=== PATIENT | female | born 1970 | race Caucasian/White ===

== ENCOUNTER 2020-03-10 15:02 | Outpatient (CLI) | payer OTHER, SELFPAY ==
--- NOTE | 2020-03-10 15:08 | MM_ITS ---
WS: [id number] BILATERAL DIGITAL SCREENING MAMMOGRAPHY WITH CAD CLINICAL INFORMATION: SCREENING HISTORY: Screening mammogram. No current complaints. COMPARISON: TECHNIQUE: Bilateral CC and MLO views. FINDINGS: The breasts are composed of heterogeneous fibroglandular density tissue, which can limit the detectio n of small underlying mass lesions. No suspicious mass, asymmetry, calcifications, or architectural d istortion. No evidence of malignancy. A few punctate calcifications right breast. MM/[id number] IMPRESSION: BI-RADS: 2-Benign FOLLOW UP: 1 Year Follow-up Recommend return to annual screening mammography.
== END 2020-03-10 15:03 | disposition home or self-care (01) ==
LOC: RADSHAW 15:07
PROVIDERS: PCP Internal Medicine; Visit Provider Nurse Practitioner Family
DX: Z12.31 Encounter for screening mammogram for malignant neoplasm of breast (principal)
CPT/HCPCS: 77067

== ENCOUNTER → 2020-06-19 11:00 | Outpatient (BNVA) | payer BC, SELFPAY | PROVIDERS: PCP Internal Medicine; Visit Provider Nurse Practitioner Family | DX: Z20.828 Contact with and (suspected) exposure to other viral communicable diseases (principal) | CPT/HCPCS: 87426 ==

== ENCOUNTER → 2020-11-18 11:01 | Outpatient (BNVA) | payer BC, SELFPAY | PROVIDERS: PCP Internal Medicine; Visit Provider Nurse Practitioner Women's Health | DX: Z01.419 Encounter for gynecological examination (general) (routine) without abnormal findings (principal); N92.1 Excessive and frequent menstruation with irregular cycle | CPT/HCPCS: 88175 ==

== ENCOUNTER 2021-03-11 08:08 | Outpatient (CLI) | payer OTHER, SELFPAY ==
--- NOTE | 2021-03-11 08:14 | MM_ITS ---
WS: [id number] SCREENING DIGITAL MAMMOGRAM WITH CAD HISTORY: SCREENING COMPARISON: 03/10/2020, 01/23/2015 and 02/16/2019 Bilateral CC and MLO views submitted. Computer aided detection analyzed. Breast composition: The breasts are heterogeneously dense, which may obscure small masses. Focal roun ded asymmetry in the posterior lateral RIGHT breast is probably above or at the nipple line on the la teral projection. This was not definitely present on the most recent examinations. MM/[id number] IMPRESSION: BI-RADS: 0-Incomplete: Need additional imaging evaluation FOLLOW UP: Need Additional Imaging RIGHT breast: Spot compression views (CC and MLO). True ML. Ultrasound to follo w if abnormality persists.
== END 2021-03-11 08:09 | disposition home or self-care (01) ==
LOC: RADSHAW 08:13
PROVIDERS: PCP Internal Medicine; Visit Provider Nurse Practitioner Family
DX: Z12.31 Encounter for screening mammogram for malignant neoplasm of breast (principal)
CPT/HCPCS: 77067

== ENCOUNTER 2021-03-27 14:01 | Outpatient (CLI) | payer BC, MEDICAID, SELFPAY ==
--- NOTE | 2021-03-27 14:14 | MM_ITS ---
WS: [id number] ADDITIONAL VIEWS RIGHT BREAST HISTORY: RIGHT BREAST ASYMMETRY COMPARISON: 03/11/2021, 03/10/2020 02/16/2019 Compression views right CC and MLO projection. True ML also submitted. The asymmetry and nodule in the lateral RIGHT breast does not persist with additional imaging. This i s probably superimposed fibroglandular tissue. No ultrasound necessary. MM/[place] [id number] IMPRESSION: BI-RADS: 2-Benign FOLLOW-UP: 1 Year Follow-up
== END 2021-03-27 14:02 | disposition home or self-care (01) ==
LOC: RADSHAW 14:07
PROVIDERS: PCP Internal Medicine; Visit Provider Family Medicine
DX: N64.89 Other specified disorders of breast (principal)
CPT/HCPCS: 77065

== ENCOUNTER 2021-05-24 23:41 | Emergency (ER) | payer BC, MEDICAID, SELFPAY ==
[2021-05-24 23:42] VITALS: BP 142/95; PULSE 108; RESP 18; TEMP 36.8; O2SAT 97; BMI 28.3
--- NOTE | 2021-05-24 23:52 | ED_ITS ---
HPI - GI Bleed General: Chief complaint: General Medical Stated complaint: HEMMORRHOIDS/ETOH Time Seen by Provider: 05/24/21 23:42 History of Present Illness: HPI Narrative: Patient is a 51-year-old female that comes to the ED via EMS for hemorrhoids. Today patient says she is having some bleeding from her rectum due to her hemorrhoids. She denies any rectal pain currently. she has been dealing with these hemorrhoids for years and sees Dr. Parra for them. Associated symptoms: Denies abdominal pain, chills, fever(s), headache(s), nausea, rash or vomiting Review of Systems Const: Denies: fever(s), chills or fatigue Eyes: Denies: change in vision or eye discomfort ENMT: Denies: throat pain, odynophagia, nasal discharge or nasal congestion Card: Denies: chest pain, palpitations, edema, swelling of feet/ankles, dyspnea on exertion or orthopnea Resp: Denies: dyspnea, productive cough or non-productive cough GI: Reports: hematochezia (red blood); Denies: abdominal pain, nausea, vomiting, diarrhea or constipation : Denies: flank pain, dysuria or hematuria Musc: Denies: neck pain, back pain or extremity swelling Skin/Breast: Denies: rash or new lesions Neuro: Denies: headache(s), numbness in extremities or weakness in extremities PFSH ED PFSH: Medical History Anemia No pertinent past medical history (Unknown) neghx: htn,dm,thyroid,dvt/pe PCP: Dr. Parra Seizure disorder has not had a seizure since 1994; both seizures occurred after each /delivery; not on medication Surgical History Hx of tubal ligation (~2003) Family History Father Colon cancer dx age 75 Mother No problems noted. Family/Other Breast cancer Maternal Aunt--dx age 60's Sister Cervical cancer sister x2--dx age 30's Denies family history of Ovarian cancer Diabetes Heart disease Hypercholesteremia Hypertension Uterine cancer Thyroid disease Stroke Social History Marital status: Physical Exam Const: COMMON NORMALS: no acute distress and alert GENERAL APPEARANCE: odor of alcohol detected HENMT: COMMON NORMALS: normocephalic HEAD & SCALP: normocephalic MOUTH: Normal oral and palatal mucosa present THROAT: posterior oropharynx normal and uvula midline Neck/C-Spine: COMMON NORMALS: supple GENERAL: Yes normal visual inspection Resp: COMMON NORMALS: normal respiratory effort, No retractions, No use of accessory muscles and clear to auscultation bilaterally AUSCULTATION: clear to auscultation bilaterally Cardio: COMMON NORMALS: regular rate, regular rhythm, S1 normal heart sound present, S2 normal heart sound present, No gallops present (Cardio), No clicks present (Cardio), No murmurs present (Cardio) and Peripheral pulses 2+ throughout RATE: regular rate RHYTHM: regular rhythm HEART SOUNDS: S1 normal heart sound present and S2 normal heart sound present PERIPHERAL PULSES: Peripheral pulses 2+ throughout GI: COMMON NORMALS: Normal to inspection, nondistended, normoactive bowel sounds present, Soft to palpation, non-tender and no masses PALPATION: Yes Soft to palpation RECTAL EXAM: External hemorrhoid(s) present (Multiple hemorrhoids-no thrombosed hemorrhoids seen.) and other (No active bleeding, dried blood at rectum noted.) OTHER: Rectal exam performed with nurse Gotti in the room as cut out operator. : COMMON NORMALS: Yes no CVA tenderness BLADDER/KIDNEY EXAM: Yes no CVA tenderness Back/Pelvis: COMMON NORMALS: no CVA tenderness Extremity: COMMON NORMALS: normal to inspection Neuro: COMMON NORMALS: moves all extremities SENSORIUM/ORIENTATION: Yes alert Skin: GENERAL SKIN EXAM: dry skin Course Vital Signs: Vital signs: Vital Signs Temperature 98.3 F 05/24/21 23:42 Pulse Rate 108 H 05/24/21 23:42 Respiratory Rate 18 05/24/21 23:42 Blood Pressure 142/95 05/24/21 23:42 Pulse Oximetry 97 05/24/21 23:42 MDM - GI Bleed MDM Narrative: Medical decision making narrative: Patient is a 51-year-old female comes to the ED with bleeding hemorrhoids. Patient says she has a history of hemorrhoids for the several years now. Tonight just prior to arrival she started having some red blood bleeding from rectum. Denies any pain. Vitals stable. Exam of the rectum showed multiple external hemorrhoids with some dried blood present no active bleeding seen. Patient has at home suppository treatment she uses for her hemorrhoids. She also sees Dr. Parra who helps manage her hemorrhoids. Patient diagnosed with bleeding of external hemorrhoids. She was told to contact Dr. Parra's office tomorrow morning to set up an appointment with them for further evaluation. Return to ED precautions given. Patient understood agree with plan. Discharge Plan Discharge Patient Disposition: Home Clinical Impression: External hemorrhoid, bleeding Condition: Stable Prescriptions: No Action ferrous sulfate 325 mg (65 mg iron) tablet 325 mg PO DAILY RF: 0 ascorbate calcium (vitamin C) 500 mg tablet 500 mg PO DAILY RF: 0 pantoprazole 40 mg tablet,delayed release (DR/EC) 40 mg PO DAILY Qty: 90 RF: 3 Discharge Orders: Discharge ED (Routine); Ordered 05/25/21 Ordered By: Norm Bro Referrals: Robert Parra MD [Primary Care Provider] - Discharge Diet: Regular Discharge Activity: Resume usual activity Patient Instructions: Hemorrhoids (DC), Sitz Bath (DC) Activity Restrictions/Additional Instructions: Follow-up with medical provider as directed. Contact Dr. Parra tomorrow morning to set up an appoint for further evaluation. Use some of your at-home suppositories to help with hemorrhoid symptoms. Return to the ER or your medical provider if condition worsens. Please read and understand discharge instructions. Thank you for choosing [facility] for your healthcare needs today. Please realize this is an emergency room and that we are providing you with a medical screening exam and this may not be complete and all inclusive of all the testing and or work up that you may need to determine your ailment or severity of your illness. It is very important that you follow up as instructed or that you return to the Emergency Department should you have concerns or if your condition changes or worsens in any way. Coding Level of Care Code ED Derrick Boat Leverman for Renetta Mckay Exam Comprehensive
== END 2021-05-25 00:42 | disposition home or self-care (01) ==
PROVIDERS: Emergency Provider Physician Assistant; PCP Internal Medicine
DX: K64.4 Residual hemorrhoidal skin tags (principal)
CPT/HCPCS: 99282

== ENCOUNTER 2021-05-26 12:04 | Emergency (ER) | payer BC, MEDICAID, SELFPAY ==
[2021-05-26 12:40] VITALS: BP 146/89; PULSE 106; RESP 16; TEMP 37.1; O2SAT 98
--- NOTE | 2021-05-26 13:36 | CT_ITS ---
WS: [id number] CT HEAD NONCONTRAST HISTORY: head injury TECHNIQUE: Contiguous axial imaging performed through the brain in 2.5 mm imaging. Bone and soft tiss ue windows. Sagittal and coronal reformats reviewed. All CT scans at [facility] use at least one of these dose optimization techniques: automated exposure control; mA and/or kV adjustment per pa tient size (includes targeted exams where dose is matched to clinical indication); or iterative recon struction. DLP: 860.93 mGy.cm COMPARISON: None available. No acute intracranial hemorrhage, midline shift or mass effect. No atrophy or prior infarcts or herniation. Ventricles: Normal size with no hydrocephalus. Paranasal sinuses: As visualized are clear. Mastoid air cells: Well pneumatized. Calvarium and scalp: Skull is intact with no soft tissue edema or swelling. CT/CT head wo con* [id number] IMPRESSION: Negative head CT.
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
[2021-05-26 16:27] VITALS: PULSE 94; RESP 16; O2SAT 97
== END 2021-05-26 16:30 | disposition home or self-care (01) ==
PROVIDERS: Emergency Provider Nurse Practitioner Family; PCP Internal Medicine
DX: S09.8XXA Other specified injuries of head, initial encounter (principal); G47.00 Insomnia, unspecified; Y04.8XXA Assault by other bodily force, initial encounter
CPT/HCPCS: 70450; 99282

== ENCOUNTER → 2021-07-08 15:17 | Outpatient (BNVA) | payer BC, MEDICAID, SELFPAY | PROVIDERS: PCP Internal Medicine; Visit Provider Nurse Practitioner Women's Health | DX: D64.9 Anemia, unspecified (principal); N93.9 Abnormal uterine and vaginal bleeding, unspecified | CPT/HCPCS: 84443; 85025 ==

== ENCOUNTER → 2021-07-14 14:47 | Outpatient (BNVA) | payer BC, MEDICAID, SELFPAY | PROVIDERS: PCP Internal Medicine; Visit Provider Nurse Practitioner Women's Health | DX: N93.9 Abnormal uterine and vaginal bleeding, unspecified (principal); R93.89 Abnormal findings on diagnostic imaging of other specified body structures | CPT/HCPCS: 76830 ==

== ENCOUNTER → 2021-08-17 13:13 | Outpatient (BNVA) | payer BC, MEDICAID, SELFPAY | PROVIDERS: PCP Internal Medicine; Visit Provider Nurse Practitioner Women's Health | DX: D69.6 Thrombocytopenia, unspecified (principal) | CPT/HCPCS: 85007; 85027 ==

== ENCOUNTER 2021-10-06 08:01 | Day surgery (SDC) | payer BC, MEDICAID, SELFPAY ==
[2021-10-02 11:26] VITALS: BMI 28.3
[2021-10-06] VITALS (9 sets, daily range): BP systolic 130–152; BP diastolic 83–94; PULSE 68–105; RESP 13–18; TEMP 36.2–36.7; O2SAT 95–100
[2021-10-06] MEDS: ketorolac 30 mg/mL INJ IVP (08:35)
[2021-10-06] MEDS: sodium chloride 0.9% 1,000 ML 30 ML IV (08:35)
--- NOTE | 2021-10-06 09:07 | ANES.PREANE2 ---
Pre-Anesthetic Assessment Height/Weight: Height 1.63 m Weight 74.843 kg Temp Pulse Resp BP Pulse Ox 97.5 F L 71 18 130/87 97 10/06/21 08:29 10/06/21 08:29 10/06/21 08:29 10/06/21 08:29 10/06/21 08:29 Preop Diagnosis: AUB Operation Date: 10/06/21 09:25 Proposed Procedures p Hysteroscopy w/ Myosure [id number]/abnormal uterine bleeding N93.9(Not Applicable) - Kasia Corbett MD Familial anesthetic complications: PONV Was Beta Alise taken within 24 hours: N/A Was Clonidine taken within 24 hours: N/A Last intake: Intake Last Liquid Date 10/05/21 Last Liquid Time 22:00 Last Solid Date 10/05/21 Last Solid Time 20:00 Social Tobacco and No alcohol Exam alert, oriented x 3, clear to auscultation bilaterally and regular rate & rhythm Airway Submandibular: within normal limits Cervical ROM: within normal limits Mallampati: Class II Dentition: full Pulmonary Chronic Obstructive Pulmonary Disease CV/HEM Anemia GI Gastroesophageal Reflux Disease Anesthetic Plan ASA status: 2 Anesthesia: General Medications/Allergies Home Medications Medication Instructions Recorded Confirmed Last Taken Type ferrous sulfate 325 mg (65 mg 325 mg PO DAILY 11/18/20 10/06/21 10/05/21 History iron) tablet celecoxib 200 mg capsule 200 mg PO BID #180 cap 06/23/21 10/06/21 10/05/21 Rx hydrocortisone acetate 25 mg 25 mg SD DAILY #12 ea 06/23/21 10/06/21 10/05/21 Rx rectal suppository (Anusol-HC) hydroxyzine HCl 25 mg tablet 25 mg PO .hs #90 tab 06/23/21 10/06/21 10/05/21 Rx pantoprazole 40 mg tablet,delayed 40 mg PO DAILY #90 tab 06/23/21 10/06/21 10/05/21 Rx release Allergies Allergy/AdvReac Type Severity Reaction Status Date / Time Penicillins Allergy Unknown Verified 10/06/21 08:17 Current Medications Generic Name Dose Route Start Last Admin Trade Name Freq PRN Reason Stop Dose Admin Sodium Chloride 1,000 mls @ 30 mls/hr 10/06/21 08:15 10/06/21 08:35 Sodium Chloride 0.9% IV 10/07/21 08:14 30 mls/hr .Q24H ALEIDA Administration PFSH Anesthesia Medical History Anemia reports present her whole life-- on iron therapy. No pertinent past medical history (Unknown) neghx: htn,dm,thyroid,dvt/pe PCP: Dr. Parra Seizure disorder has not had a seizure since 1994; both seizures occurred after each /delivery; not on medication Surgical History Hx of tubal ligation (~2003) Family History Father Colon cancer dx age 75 Mother No problems noted. Family/Other Breast cancer Maternal Aunt--dx age 60's Diabetes maternal aunt Sister Cervical cancer sister x2--dx age 30's Denies family history of Ovarian cancer Prostate cancer Heart disease Hypercholesteremia Hypertension Uterine cancer Thyroid disease Stroke Social History Marital status: Data Anesthesia Cardiac Studies: No Data to Display
--- NOTE | 2021-10-06 11:30 | W.PM.OPSUD ---
Surgery/Procedure H&P Update DATE OF PROCEDURE: October 06, 2021 DATE H&P PERFORMED: 09/30/21 H&P UPDATE INFORMATION: I have reviewed H&P completed within last 30 days, I have examined patient prior to procedure and No changes to prior documentation PREOP DIAGNOSIS: AUB PLANNED PROCEDURE: Operation Date: 10/06/21 09:25 Proposed Procedures p Hysteroscopy w/ Myosure [id number]/abnormal uterine bleeding N93.9(Not Applicable) - Kasia Corbett MD Related Problem List Diagnoses (1) Abnormal uterine bleeding (AUB):
--- NOTE | 2021-10-06 12:05 | P.OP_ITS ---
Operative Report Date of procedure: October 06, 2021 Pre-op diagnosis: Preop Diagnosis AUB Post-op diagnosis: same Post-op findings: 8 weeks sized uterus. excessive endometrial tissue Procedure done: hysteroscopy, dilation and curettage with myosure Specimens removed/disposition: endometrial curettings to pathology Surgeon: Kasia Corbett Anesthesia: MAC Estimated blood loss (mL): 5 IV fluids (mL): 600 Complications: none Findings: hysteroscopy deficit of 485 ml Condition: stable Procedure: The patient was taken to the operating room where monitored anesthesia was administered and to be adequate. She was prepped and draped in the normal sterile fashion in the dorsal lithotomy position in [facility]. A weighted speculum was placed into the vagina and the anterior lip of the cervix grasped with a single-tooth tenaculum. The uterus was sounded to 8 cm. The cervix was dilated to 16 [place]. The hysteroscope was advanced into the endometrial cavity. There was excessive tissue visualized. The MyoSure device was activated and the tissue was removed. Pictures were taken pre and post procedure. All instruments were removed. The patient tolerated the procedure well. Sponge lap and needle counts were correct x3. She was taken to the recovery room in stable condition.
--- NOTE | 2021-10-06 12:09 | PM.DCS ---
Discharge Providers Date of Discharge: October 06, 2021 Attending Provider at Discharge: Kasia Corbett MD Primary Care Provider: Robert Parra MD Diagnoses at Discharge Discharge Diagnosis (1) Abnormal uterine bleeding (AUB): Status: Acute Reason for Visit Reason for Visit: abnormal uterine bleeding N93.9 Hospital Course Hospital Course The patient was admitted for surgery. She did well postoperatively and was ready for discharge on the same day. Discharge Data Studies Completed and Pending Pending at discharge Category Date Time Status ES surgery / GI images Routine Exams 10/06/21 10:38 Taken Pathology: Surgical [PTH] Routine Pth 10/06/21 12:05 Ordered Laboratory Results Ser , Semi-Qnt 0.50 mIU/mL 10/06/21 08:06 Procedures Performed hysteroscopy, dilation and curettage with myosure Vitals Last Vital Signs Temp 97.5 F L 10/06/21 08:29 Pulse 71 10/06/21 08:29 Resp 18 10/06/21 08:29 BP 130/87 10/06/21 08:29 Pulse Ox 97 10/06/21 08:29 Discharge Plan Discharge Patient Disposition: Home Condition: Stable Prescriptions: Continued ferrous sulfate 325 mg (65 mg iron) tablet 325 mg PO DAILY 0RF hydrocortisone acetate [Anusol-HC] 25 mg suppository 25 mg UT DAILY Qty: 12 6RF pantoprazole 40 mg tablet,delayed release (DR/EC) 40 mg PO DAILY Qty: 90 3RF hydroxyzine HCl 25 mg tablet 25 mg PO .hs Qty: 90 3RF celecoxib 200 mg capsule 200 mg PO BID Qty: 180 3RF Discharge Orders: Discharge Order (Routine); Ordered 10/06/21 Ordered By: Kasia Corbett Discharge Attestations Time Spent in Discharge Care*: less than 30 min Quality Metrics Clinical Quality Measures [ No reported AMI, CVA or VTE this stay] Coding Level of Care Code Acute Chg FW DC note Diagnoses Abnormal uterine bleeding (AUB) N93.9
[2021-10-06 12:56] LABS: Glucose Point of Care 287 mg/dL (70-110)
[2021-10-06] MEDS: HYDROmorphone 1 mg/mL INJ 1 mL 0.5 MG IVP (12:56)
--- NOTE | 2021-10-06 16:28 | ANE.PACU2 ---
Inpatient post-anesthesia follow up: Airway intact: Yes Vital signs: Temperature 98.1 F Pulse Rate 68 Respiratory Rate 18 Blood Pressure 150/94 Pulse Oximetry 95 Oxygen Delivery Me thod Room Air Oxygen Flow Rate 3 Fraction of Inspir ed Oxygen Hydration adequate: Yes Nausea and vomiting: No Pain level: 2 Mental status: Baseline
== END 2021-10-06 13:29 | disposition home or self-care (01) ==
PROVIDERS: PCP Internal Medicine; Visit Provider Obstetrics & Gynecology
PROC: 0UDB8ZZ Extraction of Endometrium, Via Natural or Artificial Opening Endoscopic (ICD-10-PCS; CPT 58558; principal; 2021-10-06 09:15)
DX: N93.9 Abnormal uterine and vaginal bleeding, unspecified (principal); K21.9 Gastro-esophageal reflux disease without esophagitis; F17.210 Nicotine dependence, cigarettes, uncomplicated
CPT/HCPCS: 58558; 36416; 82962; 84702; 88305; J0330; J0690; J1170; J1885; J2250; J2405; J2704; J3010; J3490; J7030

== ENCOUNTER 2022-02-16 12:11 | Observation (INO) | payer BC, MEDICAID, SELFPAY ==
[2022-02-15 12:14] VITALS: BMI 27.4
[2022-02-16] VITALS (17 sets, daily range): BP systolic 122–153; BP diastolic 75–86; PULSE 62–110; RESP 14–22; TEMP 36.1–36.6; O2SAT 90–100
[2022-02-16] MEDS: CELEcoxib 200 mg Capsule 400 MG PO (07:21)
[2022-02-16] MEDS: gabapentin 300 mg Capsule PO (07:21)
[2022-02-16] MEDS: phenazopyridine 100 mg Tablet 200 MG PO ×3 (07:21→21:01)
[2022-02-16] MEDS: scopolamine 1.5 Patch 1 PATCH TRANSDERMA (07:22)
[2022-02-16] MEDS: acetaminophen 1,000 MG/100 ML PIGGYBACK 400 MG IV (07:29)
[2022-02-16 07:34] LABS: OR HCG Qualitative Urine Negative (Negative)
[2022-02-16 07:51] LABS: Basophils % 0.4 %; Eosinophils # 0.1 10^3/uL (0.0-0.8); Hemoglobin 9.9 g/dL (11.5-15.3); Lymphocytes # 1.4 10^3/uL (0.8-4.8); Mean Platelet Volume 9.6 fL (7.4-10.4); Monocytes # 0.4 10^3/uL (0.2-0.9); Neutrophils # 3.18 10^3/uL (1.8-7.7); Neutrophils % 63.2 %; Nucleated Red Blood Cells % 0 %; Platelet Count 267 10^3/cmm (130-400); Red Blood Count 3.19 10^6/uL (4.1-5.3); Red Cell Distribution Width 11.9 % (12.1-15.1)
--- NOTE | 2022-02-16 07:57 | P.ANESASSM_ITS ---
Pre-Anesthetic Assessment Height/Weight: Height 1.63 m Weight 72.575 kg Temp Pulse Resp BP Pulse Ox O2 Del Method 97.0 F L 72 18 126/83 97 02/16/22 07:12 02/16/22 07:12 02/16/22 07:12 02/16/22 07:12 02/16/22 07:12 02/16/22 07:15 Preop Diagnosis: adenomyosis, uterine prolapse, stress urinary incontinence Operation Date: 02/16/22 08:30 Proposed Procedures p Laparoscopic assisted vaginal hysterectomy [id number],N80.0(Not Applicable) - Kasia Corbett MD s Salpingectomy(Bilateral) - Kasia Corbett MD s Sling Single Incision Midurethral Sling(Not Applicable) - Kasia Corbett MD Familial anesthetic complications: none Was Beta Alise taken within 24 hours: N/A Was Clonidine taken within 24 hours: N/A Last intake: Intake Last Liquid Date 02/15/22 Last Liquid Time 20:30 Last Solid Date 02/15/22 Last Solid Time 20:30 Social Tobacco and No alcohol Exam alert, oriented x 3, clear to auscultation bilaterally and regular rate & rhythm Airway Mallampati: Class II Dentition: full CV/HEM Anemia GI Gastroesophageal Reflux Disease Anesthetic Plan ASA status: 2 Anesthesia: General Risk of > 500 ml blood loss (7ml/kg in children): No Medications/Allergies Home Medications Medication Instructions Recorded Confirmed Last Taken Type ferrous sulfate 325 mg (65 mg 325 mg PO DAILY 11/18/20 02/16/22 02/15/22 History iron) tablet celecoxib 200 mg capsule 200 mg PO BID #180 caps 06/23/21 02/16/22 02/15/22 Rx hydrocortisone acetate 25 mg 25 mg NC DAILY #12 ea 06/23/21 02/16/22 10/05/21 Rx rectal suppository (Anusol-HC) hydroxyzine HCl 25 mg tablet 25 mg PO .hs #90 tabs 06/23/21 02/16/22 10/05/21 Rx pantoprazole 40 mg tablet,delayed 40 mg PO DAILY #90 tabs 06/23/21 02/16/22 02/15/22 Rx release dibucaine 1 % rectal ointment 1 applic NC TID PRN rectal 12/29/21 02/16/22 Unknown Rx discomfort #56 grams hydrocortisone 2.5 % topical cream 1 applic NC DAILY PRN hemorrhoids 12/29/21 02/16/22 Unknown Rx with perineal applicator #30 grams clobetasol 0.05 % topical ointment 1 applic topical BID 2 weeks #60 01/11/22 02/16/22 Unknown Rx grams Allergies Allergy/AdvReac Type Severity Reaction Status Date / Time Penicillins Allergy Unknown Verified 02/16/22 07:35 [facility] Anesthesia Medical History Anemia reports present her whole life-- on iron therapy. No pertinent past medical history (Unknown) neghx: htn,dm,thyroid,dvt/pe PCP: Dr. Parra Seizure disorder has not had a seizure since 1994; both seizures occurred after each /delivery; not on medication Surgical History Hx of tubal ligation (~2003) Family History Father Colon cancer dx age 75 Mother No problems noted. Family/Other Breast cancer Maternal Aunt--dx age 60's Diabetes maternal aunt Sister Cervical cancer sister x2--dx age 30's Denies family history of Ovarian cancer Prostate cancer Heart disease Hypercholesteremia Hypertension Uterine cancer Thyroid disease Stroke Social History Smoking and tobacco status: current every day smoker (2 Packs per week) Marital status: Data Anesthesia : 02/16/22 07:25 02/16/22 07:25 Short CBC 02/16/22 Range/Units 07:25 WBC 5.0 (4.0-10.0) 10^3/uL Hgb 9.9 L (11.5-15.3) g/dL Hct 30.0 L (37.0-47.0) % MCV 94.0 (81-99) fl Plt Count 267 (130-400) 10^3/cmm Neut % (Auto) 63.2 % Neut # (Auto) 3.18 (1.8-7.7) 10^3/uL Cardiac Studies: No Data to Display
[2022-02-16 08:09] LABS: Anion Gap 13.4 (5-19); Blood Urea Nitrogen 21 mg/dL (6-20); Carbon Dioxide 23 mmol/L (22-29); Chloride 104 mmol/L (98-107); Glomerular Filtration Rate 88.6 mL/min (90-130); Glucose 114 mg/dL (65-115); Osmolality Calculated 286 mOsm/kg (285-295); Potassium 4.4 mmol/L (3.5-5.1); Sodium 136 mmol/L (136-145)
[2022-02-16] MEDS: ceFAZolin 2,000 MG in sodium chloride 0.9% (plus) 50 ML 100 MG IV ×2 (09:23→15:44)
--- NOTE | 2022-02-16 09:30 | W.PM.OPSUD ---
Surgery/Procedure H&P Update DATE OF PROCEDURE: February 16, 2022 DATE H&P PERFORMED: 02/12/22 H&P UPDATE INFORMATION: I have reviewed H&P completed within last 30 days, I have examined patient prior to procedure and No changes to prior documentation PREOP DIAGNOSIS: adenomyosis, uterine prolapse, stress urinary incontinence PLANNED PROCEDURE: Operation Date: 02/16/22 08:30 Proposed Procedures p Laparoscopic assisted vaginal hysterectomy [id number],N80.0(Not Applicable) - Kasia Corbett MD s Salpingectomy(Bilateral) - Kasia Corbett MD s Sling Single Incision Midurethral Sling(Not Applicable) - Kasia Corbett MD Related Problem List Diagnoses (1) Uterine prolapse: (2) TREVOR (stress urinary incontinence, female): (3) Adenomyosis:
[2022-02-16] MEDS: vasopressin 20 unit/mL INJ INJECTION (10:18)
--- NOTE | 2022-02-16 11:57 | P.OP_ITS ---
Operative Report Date of procedure: February 16, 2022 Pre-op diagnosis: Preop Diagnosis adenomyosis, uterine prolapse, stress urinary incontinence Post-op diagnosis: same Post-op diagnosis: no incontinence post hysterectomy Procedure done: LAVH. Bilateral salpingectomy, Specimens removed/disposition: uterus and bilateral fallopian tubes to pathology Surgeon: Kasia Corbett Anesthesia: General Estimated blood loss (mL): 100 IV fluids (mL): 1,200 Urine output (mL): 500 Complications: none Condition: stable Disposition: PACU Procedure: The patient was taken to the operating room where general anesthesia was administered and found to be adequate. She was prepped and draped in the normal sterile fashion in the dorsal lithotomy position in [facility]. A Ojeda catheter was placed. A weighted speculum was placed into the vagina and the anterior lip of the cervix was grasped with a single tooth tenaculum. The Zumi uterine manipulator was placed. The weighted speculum was removed. The gloves were changed and attention was turned to the abdomen. A 5 mm supraumbilical incision was made. Using a 5 mm port with the camera, the port was placed into the abdomen. The abdomen was insufflated. Two low, lateral 5 mm ports were placed on the left and right under direct visualization from the camera. The right tube was grasped and elevated. Using the laparoscopic cautery, the mesosa lpinx was divided between the ovary and tube. The tube was removed. This was performed the same way on the left. The left tube was left attached to the uterus. The uteroovarian ligaments as well as the round ligaments were ligated. Attention was then turned to the vaginal portion of the procedure. The weighted speculum was placed into the vagina. The zumi manipulator was removed. The single tooth tenaculum was removed and replaced with the luis's tenaculum. 10 mL of dilute Pitressin was injected at the vesicovaginal junction. A circumferential incision was made at the vesicovaginal junction and the vaginal mucosa reflected cephalad. The posterior peritoneum was entered sharply with the Metzenbaum scissors and the long weighted speculum replaced. Using the Rasheeda clamps the uterosacral ligaments were clamped cut and suture- ligated. The anterior peritoneum was entered sharply with the metzenbaum scissors. Then sequentially the uterine arteries and cardinal ligaments were clamped cut and suture-ligated. A single-tooth tenaculum was used to deliver the uterus. The remaining segement of the utero-ovarian ligaments were clamped cut and suture-ligated bilaterally and the specimen was removed. There was good hemostasis with only mild bleeding from the cuff. The peritoneum was closed with a pursestring using 2-0 Vicryl. The vaginal cuff was closed with 0 Vicryl in a running locked pattern incorporating the uterosacral ligaments into the lateral aspects of the vaginal cuff. The Ojeda catheter was removed and the cystoscope advanced into the bladder. The patient was given pyridium and bilateral spill was noted. There were no injuries or deficits noted in the bladder. The cystoscope was removed and the Ojeda was replaced. Vaginal packing was placed for good hemostasis. The gloves and gowns were changed and attention was turned to the abdomen. The ports were closed with 2-0 monocryl with skin glue. The patient tolerated the procedure well. Sponge lap and needle counts were correct x3. She was taken to the recovery room in stable condition.
--- NOTE | 2022-02-16 12:00 | SUR.PHASEI ---
1151 PT TO PACU5 PT AWAKES TO VOICE, WITH GOOD RESP EFFORT, MONITOR SR-ST WITH NO ECTOPY, IV TO LT FA #20 WITH NS 700ML UP AT KVO RATE PER GRAVITY, ID BRACELET TO RT WRIST, PT ID'D WTH 2 IDENTIFIERS. BILAT SCDS ON PTS ABDOMEN SOFT WITH 3 SITES TO ABDOMEN WITH SKIN GLUE AND KATHERINE PAD VAGINAL PACKING IN PLACE.
--- NOTE | 2022-02-16 12:03 | SUR.PHASEI ---
ABOVE IV TO LT HAND NOT FA.
--- NOTE | 2022-02-16 12:04 | SUR.PHASEI ---
PT CONTINUES TO SLEEP WITH SNORING RESP, PT AWAKES SELF OFF AND ON , DENIES PAIN AND NAUSEA, VSS ABDOMEN UNCHANGED PT WITH GONZALEZ CATHETER TO DD WITH LT ORANGE CLEAR URINE TO TUBING AND BAG, STATLOCK TO LT INNER THIGH.
--- NOTE | 2022-02-16 12:17 | SUR.PHASEI ---
PT AWAKES OFF AND ON VSS IV PATENT ABDOMEN SOFT AND NO BLEEDING NOTED TO DRESSING.
--- NOTE | 2022-02-16 14:49 | ANE.PACU2 ---
Inpatient post-anesthesia follow up: Airway intact: Yes Vital signs: Temperature 97.6 F Pulse Rate 80 Respiratory Rate 17 Blood Pressure 127/85 Pulse Oximetry 100 Oxygen Delivery Me thod Nasal Cannula Oxygen Flow Rate 2 Fraction of Inspir ed Oxygen Hydration adequate: Yes Nausea and vomiting: No Pain level: 1 Mental status: Baseline
[2022-02-16] MEDS: dextrose 5%-lactated ringers 1,000 ML 125 ML IV (15:44)
[2022-02-16] MEDS: ketorolac 30 mg/mL INJ IVP ×2 (15:48→21:02)
[2022-02-16] MEDS: hydrocortisone 2.5% cream 28 gm 1 APPLIC PR (19:20)
[2022-02-16] MEDS: ceFAZolin 2,000 MG in sodium chloride 0.9% (plus) 50 ML 125 MG IV (21:01)
[2022-02-16] MEDS: docusate sodium 100 mg Capsule PO (21:02)
[2022-02-17] MEDS: dextrose 5%-lactated ringers 1,000 ML 125 ML IV (00:25)
[2022-02-17] MEDS: HYDROcodone-acetaminophen 5-325 mg Tablet PO ×2 (01:42→10:51)
[2022-02-17] MEDS: ketorolac 30 mg/mL INJ IVP (03:04)
[2022-02-17 04:13] VITALS: BP 131/79; PULSE 96; RESP 15; TEMP 36.7; O2SAT 96
[2022-02-17 05:46] LABS: Hemoglobin 8.4 g/dL (11.5-15.3); Mean Corpuscular HGB Conc 32.3 g/dL (30.0-36.0); Mean Corpuscular Hemoglobin 31.1 pg (28.0-34.0); Mean Corpuscular Volume 96.3 fl (81-99); Mean Platelet Volume 9.8 fL (7.4-10.4); Platelet Count 237 10^3/cmm (130-400); Red Cell Distribution Width 12.2 % (12.1-15.1); White Blood Count 8.9 10^3/uL (4.0-10.0)
[2022-02-17] MEDS: ibuprofen 800 mg tablet PO (08:16)
[2022-02-17] MEDS: docusate sodium 100 mg Capsule PO (08:17)
[2022-02-17] MEDS: pantoprazole DR 40 mg Tablet PO (08:18)
[2022-02-17] MEDS: simethicone 80 mg Chew PO (08:18)
[2022-02-17] MEDS: phenazopyridine 100 mg Tablet 200 MG PO (08:18)
--- NOTE | 2022-02-17 10:37 | PM.DCS ---
Discharge Providers Date of Admission: 02/16/22 12:11 Date of Discharge: February 17, 2022 Attending Provider at Admission: Kasia Corbett MD Attending Provider at Discharge: Kasia Corbett MD Primary Care Provider: Robert Parra MD Diagnoses at Discharge Discharge Diagnosis (1) Uterine prolapse: Status: Acute (2) TREVOR (stress urinary incontinence, female): Status: Acute (3) Adenomyosis: Status: Acute Hospital Course Hospital Course The patient was admitted for surgery. She did well postoperatively and was ready for discharge on day #1 Physical Exam Narrative: The patient is doing well this morning. She had some issues with her hemorrhoids last night, but that has improved today Const: COMMON NORMALS: no acute distress, average body habitus, patient oriented x3, no limitations, healthy appearing, alert and well nourished GENERAL APPEARANCE: cooperative, comfortable, well kempt and well developed ORIENTATION/CONSCIOUSNESS: Yes awake, Yes oriented to person, Yes oriented to place and Yes oriented to time Resp: COMMON NORMALS: normal respiratory effort EFFORT & INSPECTION: Yes able to speak in complete sentences GI: COMMON NORMALS: Soft to palpation and non-tender PALPATION: Yes Soft to palpation Extremity: COMMON NORMALS: no calf tenderness Neuro: COMMON NORMALS: patient oriented x3 SENSORIUM/ORIENTATION: Yes alert, Yes oriented to person, Yes oriented to place and Yes oriented to time Psych: APPEARANCE: Yes well kempt Urinary Catheter Management: Ojeda: Cath Placed During This Visit: yes, but has since been removed by the nurse Reason for Continuing Indwelling Catheter: Other Urinary Catheter Date of Insertion: 02/16/22 Urinary Catheter Time of Insertion: 09:54 Date Urinary Catheter Removed: 02/17/22 Time Urinary Catheter Discontinued: 05:23 Discharge Data Studies Completed and Pending Pending at discharge Category Date Time Status ES surgery / GI images Routine Exams 02/16/22 06:43 Taken Urine Culture Routine Lab 02/16/22 07:25 Results Pathology: Surgical [PTH] Routine Pth 02/16/22 11:40 Received Laboratory Results WBC 8.9 10^3/uL (4.0-10.0) 02/17/22 05:23 RBC 2.70 10^6/uL (4.1-5.3) L 02/17/22 05:23 Hgb 8.4 g/dL (11.5-15.3) L 02/17/22 05:23 Hct 26.0 % (37.0-47.0) L 02/17/22 05:23 MCV 96.3 fl (81-99) 02/17/22 05:23 MCH 31.1 pg (28.0-34.0) 02/17/22 05:23 MCHC 32.3 g/dL (30.0-36.0) 02/17/22 05:23 RDW 12.2 % (12.1-15.1) 02/17/22 05:23 Plt Count 237 10^3/cmm (130-400) 02/17/22 05:23 MPV 9.8 fL (7.4-10.4) 02/17/22 05:23 Neut % (Auto) 63.2 % 02/16/22 07:25 Lymph % (Auto) 27.0 % 02/16/22 07:25 Brooke % (Auto) 7.0 % 02/16/22 07:25 Eos % (Auto) 2.0 % 02/16/22 07:25 Baso % (Auto) 0.4 % 02/16/22 07:25 Neut # (Auto) 3.18 10^3/uL (1.8-7.7) 02/16/22 07:25 Lymph # (Auto) 1.4 10^3/uL (0.8-4.8) 02/16/22 07:25 Brooke # (Auto) 0.4 10^3/uL (0.2-0.9) 02/16/22 07:25 Eos # (Auto) 0.1 10^3/uL (0.0-0.8) 02/16/22 07:25 Baso # (Auto) 0.0 10^3/uL (0.0-0.1) 02/16/22 07:25 Nucleated RBC % (auto) 0 % 02/16/22 07:25 Nucleated RBCs # 0.0 /100WBC 02/16/22 07:25 Sodium 136 mmol/L (136-145) 02/16/22 07:25 Potassium 4.4 mmol/L (3.5-5.1) 02/16/22 07:25 Chloride 104 mmol/L (98-107) 02/16/22 07:25 Carbon Dioxide 23 mmol/L (22-29) 02/16/22 07:25 Anion Gap 13.4 (5-19) 02/16/22 07:25 BUN 21 mg/dL (6-20) H 02/16/22 07:25 Creatinine 0.7 mg/dL (0.5-0.9) 02/16/22 07:25 GFR Calculation 88.6 mL/min (90-130) L 02/16/22 07:25 Glucose 114 mg/dL (65-115) 02/16/22 07:25 Calculated Osmolality 286 mOsm/kg (285-295) 02/16/22 07:25 Calcium 9.0 mg/dL (8.5-10.5) 02/16/22 07:25 Urine HCG, Qual Negative (Negative) 02/16/22 07:33 Blood Type O Positive 02/16/22 07:25 Rho(D) Type Positive 02/16/22 07:25 Antibody Screen Negative 02/16/22 07:25 Vitals Last Vital Signs Temp 98.1 F 02/17/22 04:13 Pulse 96 02/17/22 04:13 Resp 15 02/17/22 04:13 BP 131/79 02/17/22 04:13 Pulse Ox 96 02/17/22 04:13 O2 Del Method 02/17/22 04:13 O2 Flow Rate 2 02/16/22 12:30 Discharge Plan Discharge Patient Disposition: Home Condition: Stable Prescriptions: New ibuprofen 800 mg Tablet 800 mg PO Q8H Qty: 30 0RF Rx Instructions: Do NOT take at the same time as celebrex hydrocodone-acetaminophen 5-325 mg Tablet 1 tab PO Q4H PRN (Reason: Moderate To Severe Pain) Qty: 30 0RF docusate sodium 100 mg Capsule 100 mg PO BID Qty: 60 0RF Continued ferrous sulfate 325 mg (65 mg iron) tablet 325 mg PO DAILY hydrocortisone acetate [Anusol-HC] 25 mg suppository 25 mg OR DAILY Qty: 12 6RF pantoprazole 40 mg tablet,delayed release (DR/EC) 40 mg PO DAILY Qty: 90 3RF hydroxyzine HCl 25 mg tablet 25 mg PO .hs Qty: 90 3RF celecoxib 200 mg capsule 200 mg PO BID Qty: 180 3RF dibucaine 1 % ointment 1 applic OR TID PRN (Reason: rectal discomfort) Qty: 56 3RF hydrocortisone 2.5 % cream with perineal applicator 1 applic OR DAILY PRN (Reason: hemorrhoids) Qty: 30 3RF clobetasol 0.05 % ointment 1 applic topical BID 14 Days Qty: 60 1RF Rx Instructions: Use for elbows/hands no more than 2 weeks per month. Not for use on face/skin folds. Discharge Orders: Discharge Order (Routine); Ordered 02/17/22 Ordered By: Kasia Corbett Referrals: Kasia Corbett MD [Physician] - 02/25/22 2:00 pm (Your [address] week [address] appointment [address] Dr. Corbett is Thursday March 31, 2022 at 2:00 p.m.) Patient Instructions: Hydrocodone/Acetaminophen (By mouth), Ibuprofen (By mouth), Salpingectomy (DC), Hysterectomy (DC), Laparoscopic Hysterectomy (DC), Vaginal Hysterectomy (DC), Opioid Safety Discharge Attestations Time Spent in Discharge Care*: less than 30 min Quality Metrics Clinical Quality Measures [ No reported AMI, CVA or VTE this stay] Coding Level of Care Code Acute Chg FW DC note Diagnoses Uterine prolapse N81.4 TREVOR (stress urinary incontinence, female) N39.3 Adenomyosis N80.0
[2022-02-17 11:00] VITALS: BP 122/74; PULSE 75; RESP 16; TEMP 36.6; O2SAT 98
== END 2022-02-17 11:00 | disposition home or self-care (01) ==
LOC: OBGYN 12:11
PROVIDERS: Anesthesiology; Admitting Provider Obstetrics & Gynecology; PCP Internal Medicine; Visit Provider Obstetrics & Gynecology
PROC: 0UT9FZZ Resection of Uterus, Via Natural or Artificial Opening With Percutaneous Endoscopic Assistance (ICD-10-PCS; CPT 58552; principal; 2022-02-16 08:30)
PROC: (CPT 58700; 2022-02-16 08:30)
DX: N81.4 Uterovaginal prolapse, unspecified (principal); N39.3 Stress incontinence (female) (male); N80.0 Endometriosis of uterus; K21.9 Gastro-esophageal reflux disease without esophagitis; Z80.0 Family history of malignant neoplasm of digestive organs; F17.210 Nicotine dependence, cigarettes, uncomplicated
CPT/HCPCS: 58552; 36415; 80048; 84703; 85025; 85027; 86850; 86900; 87086; 88307; G0378; J1100; J1170; J1200; J1885; J2250; J2405; J2704; J2710; J3010; J3490

== ENCOUNTER 2022-03-29 12:24 | Outpatient (CLI) | payer BC, MEDICAID, SELFPAY ==
--- NOTE | 2022-03-29 | MM_ITS ---
WS: [id number] BILATERAL 3D TOMOSYNTHESIS DIGITAL SCREENING MAMMOGRAPHY WITH CAD CLINICAL INFORMATION: SCREENING HISTORY: Screening mammogram. No current complaints. COMPARISON: March 27, 2021 TECHNIQUE: Bilateral CC and MLO views. FINDINGS: Scattered fibroglandular densities bilaterally. Lobulated ovoid nodule inner RIGHT breast best seen o n the cc view measuring 7 mm. Recommend RIGHT breast diagnostic mammography and ultrasound for furthe r evaluation. This appears to be near the 3:00 position on the tomographic images. LEFT breast is unremarkable and unchanged. A few incidental punctate and clustered calcifications. MM/[place] [id number] IMPRESSION: BI-RADS: 0-Incomplete: Need additional imaging evaluation FOLLOW UP: Need Additional Imaging Recommend RIGHT breast diagnostic mammography and ultrasound for further evalua tion
== END 2022-03-29 12:25 | disposition home or self-care (01) ==
LOC: RAD 12:26
PROVIDERS: PCP Obstetrics & Gynecology; Visit Provider Nurse Practitioner Family
DX: Z12.31 Encounter for screening mammogram for malignant neoplasm of breast (principal)
CPT/HCPCS: 77063; 77067

== ENCOUNTER 2022-04-23 10:20 | Outpatient (CLI) | payer BC, MEDICAID, SELFPAY ==
--- NOTE | 2022-04-23 10:27 | MM_ITS ---
WS: [id number] RIGHT 3D TOMOSYNTHESIS DIGITAL MAMMOGRAPHY WITH CAD CLINICAL INFORMATION: ABNORMAL MAMMO COMPARISON: March 29, 2022 TECHNIQUE: 3 views of the right breast were obtained. FINDINGS: Scattered fibroglandular densities of the right breast. Lobulated ovoid nodule in the RIGHT breast me asuring 7 mm is persistent. Ultrasound described below. ULTRASOUND BREAST RIGHT TECHNIQUE: Ultrasound right breast focused area of concern. CLINICAL INFORMATION: ABNORMAL MAMMO COMPARISON: None. FINDINGS: Ultrasound RIGHT breast. Complex multicystic septated lesion at the 1:00 position 3 cm from the nippl e. This measures approximately 6.6 x 9.4 x 8.3 mm. This may represent a complex cyst but nonspecific and recommend further evaluation with ultrasound-guided biopsy. MM/[place] [id number] IMPRESSION: BI-RADS: 4-Suspicious Finding-Biopsy Should Be Considered FOLLOW UP: US Guided Biopsy Recommended Recommend ultrasound-guided biopsy in further evaluation.
== END 2022-04-23 10:21 | disposition home or self-care (01) ==
LOC: RAD 10:22
PROVIDERS: PCP Obstetrics & Gynecology; Visit Provider Nurse Practitioner Family
DX: R92.8 Other abnormal and inconclusive findings on diagnostic imaging of breast (principal); N63.12 Unspecified lump in the right breast, upper inner quadrant
CPT/HCPCS: 76642; 77061; G0279

== ENCOUNTER 2022-05-19 07:56 | Outpatient (CLI) | payer BC, MEDICAID, SELFPAY ==
--- NOTE | 2022-05-19 08:43 | US_ITS ---
WS: [id number] ULTRASOUND-GUIDED RIGHT BREAST BIOPSY CLINICAL INFORMATION: BREAST MASS FINDINGS: The procedure including risks, benefits, and complications were discussed with the patient who agreed to proceed. Using sterile technique patient was prepped and draped in the usual sterile fashion. Aft er 1% lidocaine utilizing real-time ultrasound guidance 2 14-gauge cores were obtained of the RIGHT b reast lesion at the 1 o'clock position. Complex cystic lesion decompressed after the 1st biopsy pass. Subsequently a titanium clip was placed in the biopsy cavity. No immediate complications. Pathology demonstrates A. Breast, right, 1 o'clock, 3 cm from nipple, ultrasound-guided biopsy: - Benign breast tissue with fibrocystic changes - No malignancy identified. US/[place] [id number] IMPRESSION: 1. Uncomplicated ultrasound-guided RIGHT breast biopsy. 2. Complex cystic lesion decompressed after the 1st biopsy pass. 3. The pathology demonstrates benign fibrocystic changes. No malignancy identi fied. 4. Recommend return to annual screening mammography. BI-RADS: 2-Benign FOLLOW UP: 1 Year Follow-up
== END 2022-05-19 07:57 | disposition home or self-care (01) ==
LOC: RAD 07:58
PROVIDERS: PCP Nurse Practitioner Family; Visit Provider Nurse Practitioner Family
DX: N63.15 Unspecified lump in the right breast, overlapping quadrants (principal)
CPT/HCPCS: 19083; 88305

== ENCOUNTER 2022-09-03 09:51 | Outpatient (CLI) | payer BC, MEDICAID, SELFPAY ==
--- NOTE | 2022-09-03 09:53 | US_ITS ---
WS: [id number] ULTRASOUND BREAST LEFT TECHNIQUE: Ultrasound left breast focused area of concern. CLINICAL INFORMATION: N64.4 - Mastodynia COMPARISON: 04/23/2022 and 03/29/2022 FINDINGS: Ultrasound LEFT breast in the area of concern 3:00 position 5 cm from the nipple. Dense underlying pa renchymal tissue. Incidental simple cyst at the 2 to 3:00 position measuring 7.0 x 4.3 x 5.6 mm. No o ther suspicious findings. Recommend return to annual screening mammography. US/US breast LT limited* [id number] IMPRESSION: BI-RADS 2 benign FOLLOW UP: Return to annual screening mammography.
== END 2022-09-03 09:52 | disposition home or self-care (01) ==
PROVIDERS: PCP Nurse Practitioner Family; Visit Provider Obstetrics & Gynecology
DX: N64.4 Mastodynia (principal); N60.02 Solitary cyst of left breast
CPT/HCPCS: 76642

== ENCOUNTER 2023-05-25 10:43 | Outpatient (CLI) | payer BC, MEDICAID, SELFPAY ==
--- NOTE | 2023-05-25 10:46 | MM_ITS ---
WS: [id number] Bilateral screening 3D tomosynthesis digital mammogram, 05/25/2023 Clinical Data: SCREENING Comparison: 04/23/2022, 03/29/2022, 03/27/2021, 03/11/2021, 03/10/2020, 02/16/2019, 02/14/2018, 01/21/2017, 01/27/2016, 01/23/2015, 09/19/2013, 03/29/2012, 07/22/2004. Findings: The breast parenchymal pattern shows fibroglandular tissue. No spiculated masses or clustered calcifi cations are seen. There are no secondary signs of carcinoma. There is a biopsy clip in the medial asp ect of the right breast. Impression: 1. Negative bilateral mammogram unchanged. 2. Recommend annual screening mammograms. MM/[place] [id number] BIRADS: 1-Negative FOLLOW UP: 1 Year Follow-up The CAD installment account checker was used.
== END 2023-05-25 10:44 | disposition home or self-care (01) ==
LOC: RAD 10:43
PROVIDERS: PCP Nurse Practitioner Family; Visit Provider Family Medicine
DX: Z12.31 Encounter for screening mammogram for malignant neoplasm of breast (principal)
CPT/HCPCS: 77063; 77067

== ENCOUNTER → 2023-06-20 10:43 | Outpatient (BNVA) | payer BC, MEDICAID, SELFPAY | PROVIDERS: PCP Nurse Practitioner Family; Visit Provider Family Medicine | DX: D64.9 Anemia, unspecified (principal); D50.9 Iron deficiency anemia, unspecified; Z13.6 Encounter for screening for cardiovascular disorders | CPT/HCPCS: 80053; 80061; 82728; 83550; 85025 ==

== ENCOUNTER → 2024-01-02 14:43 | Outpatient (BNVA) | payer BC, MEDICAID, SELFPAY | PROVIDERS: PCP Nurse Practitioner Family; Visit Provider Internal Medicine | DX: R07.9 Chest pain, unspecified (principal) | CPT/HCPCS: 93005 ==

== ENCOUNTER 2024-02-29 12:24 | Outpatient (CLI) | payer BC, MEDICAID, SELFPAY ==
--- NOTE | 2024-02-29 12:45 | USCV_ITS ---
Hanny Gan Age: 54 Gender: F : 1970 Exam Date: 02/29/2024 12:39 Ordering Phys: Theo Stephen M.D ([email or web address]) Technologist: Exam Location: [facility] [place] Indication: cp BP: 120 / 70 HR: 71 Rhythm: Sinus Technical Quality: Adequate MEASUREMENTS (Male / Female) Normal Values 2D ECHO LV Diastolic Diameter PLAX 4.3 cm 4.2 - 5.9 / 3.9 - 5.3 cm IVS Diastolic Thickness 1.3 cm 0.6 - 1.0 / 0.6 - 0.9 cm IVS Systolic Thickness 1.8 cm LVPW Diastolic Thickness 1.3 cm 0.6 - 1.0 / 0.6 - 0.9 cm LVPW Systolic Thickness 1.7 cm LVOT Diameter 2.0 cm LV Ejection Fraction 2D Teich 72.4 % LV Ejection Fraction MOD 4C 63.7 % LV Ejection Fraction MOD 2C 58.0 % LV Ejection Fraction 2C AL 57.6 % LA Diameter 3.0 cm RA Systolic Volume 4C AL 20.2 ml RA Systolic Volume 4C MOD 19.5 ml LA Sys Volume AL 34.1 cm cubed LA Sys Volume Index AL 18.8 cm cubed/m squared Aorta at Sinotubular Diameter 2.3 cm IVC Diameter 2.1 cm M-MODE LA Ao Ratio MM 1.3 MV E Point Septal Separation 0.6 cm AV Cusp Separation MM 2.3 cm DOPPLER AV Peak Velocity 143.0 cm/s LVOT Peak Velocity 106.0 cm/s AV Area Cont Eq vti 2.1 cm squared AV Area Cont Eq pk 2.3 cm squared MV Peak Velocity 98.0 cm/s MV Area PHT 4.9 cm squared Mitral E to A Ratio 1.1 TR Peak Velocity 194.0 cm/s TR Peak Gradient 15.1 mmHg TV Peak E Velocity 78.0 cm/s Right Atrial Pressure 3.0 mmHg Pulmonary Artery Systolic Pressu 18.1 mmHg PV Peak Velocity 101.0 cm/s FINDINGS Left Ventricle Normal left ventricular size, systolic function and wall thickness, with no regional wall motion abnormalities. Left ventricular ejection fraction is estimated at 60 %. Normal left ventricular filling pressure. Right Ventricle The right ventricle is normal in size and function. Right Atrium The right atrium is normal in size. Left Atrium The left atrium is normal in size. Mitral Valve Structurally normal mitral valve without significant stenosis or prolapse. There is no mitral regurgitation. Aortic Valve Structurally normal aortic valve without significant sclerosis or stenosis. There is no aortic regurgitation. Tricuspid Valve Structurally normal tricuspid valve without significant stenosis or regurgitation. Pulmonary artery systolic pressure is normal. Pulmonic Valve Structurally normal pulmonic valve without significant stenosis. There is no pulmonic regurgitation. Pericardium Normal pericardium without effusion. Aorta Normal ascending aorta dimension. IVC The inferior vena cava appears normal. CONCLUSIONS Normal left ventricular size, systolic function and wall thickness, with no regional wall motion abnormalities. Left ventricular ejection fraction is estimated at 60 %. Normal left ventricular filling pressure. No significant valve abnormalities. There is no pericardial effusion. Pulmonary artery systolic pressure is within normal limits. Right atrial pressure is around 5 mm of mercury. Basil Long MD (Electronically Signed) Final Date: 29 February 2024 20:28 S
== END 2024-02-29 12:25 | disposition home or self-care (01) ==
LOC: RAD 12:26
PROVIDERS: PCP Nurse Practitioner Family; Visit Provider Internal Medicine
DX: R06.02 Shortness of breath (principal); R07.9 Chest pain, unspecified
CPT/HCPCS: 93306

== ENCOUNTER 2024-06-27 13:49 | Outpatient (CLI) | payer BC, MEDICAID, SELFPAY ==
--- NOTE | 2024-06-27 13:53 | MM_ITS ---
WS: [id number] Bilateral screening 3D tomosynthesis digital mammogram, 06/27/2024 1:57 PM Clinical Data: SCREENING Comparison: 05/25/2023, 04/23/2022, 03/29/2022, 03/27/2021 03/11/2021, 03/10/2020, 02/16/2019, 02/14/2018, 01/21/2017, 01/27/2016, 01/23/2015, 09/19/2013, 03/29/2012, 06/24/2004. Findings: No spiculated masses or clustered calcifications are seen. There are no secondary signs of carcinoma. MM/MM scr BI tomosynthesis [id number] Impression: Negative bilateral mammogram unchanged. Recommend annual screening mammograms. BIRADS: 1 - Negative. FOLLOW UP: 1 Year Follow-up DENSITY: There are scattered areas of fibroglandular density. The CAD relay checker was used
== END 2024-06-27 13:50 | disposition home or self-care (01) ==
LOC: RAD 13:53
PROVIDERS: PCP Nurse Practitioner Family; Visit Provider Nurse Practitioner Family
DX: Z12.31 Encounter for screening mammogram for malignant neoplasm of breast (principal); R92.323 Mammographic fibroglandular density, bilateral breasts
CPT/HCPCS: 77063; 77067